=== PATIENT | female | born 1940 | race Caucasian/White ===

== ENCOUNTER 2017-04-04 08:58 | Day surgery (SDC) | payer OTHER, BC ==
[2017-03-27 16:08] VITALS: BMI 30.2
[2017-04-04] MEDS: PHENYLEPHRINE 2.5% OPHTH SOLN 15 ML BOTTLE ONE ×5 (09:25→09:45)
[2017-04-04] MEDS: CYCLOPENTOLATE HCL 1% OPHTH SOLN 2 ML BOTTLE ONE ×5 (09:25→09:45)
[2017-04-04] MEDS: TROPICAMIDE 1% OPHTH SOLN 15 ML BOTTLE ONE ×5 (09:25→09:45)
[2017-04-04] MEDS: FLURBIPROFEN 0.03% OPHTH SOLN 2.5 ML BOTTLE ONE ×5 (09:25→09:45)
[2017-04-04] MEDS: GENTAMICIN SULFATE 0.3% OPHTHALMIC (EYE DROPS) 5ML BOTTLE ONE ×2 (09:40→09:55)
[2017-04-04] MEDS ORDERED: NEO/POLYMYX B SULF/DEXAMETH OPHTHALMIC OINTMENT 3.5 GM ONE (10:50)
[2017-04-04] MEDS ORDERED: BACITRACIN/POLYMYXIN OPH OINT 3.5 GM TUBE ONE (10:51)
[2017-04-04] MEDS ORDERED: BETAXOLOL HCL 0.25% OPHTHALMIC 10 ML DROPSBTL ONE (10:52)
[2017-04-04] MEDS ORDERED: ACETYLCHOLINE 1:100 INTRA-OCUL 20 MG/2 ML KIT ONE (10:52)
[2017-04-04] MEDS ORDERED: POVIDONE-IODINE 5% OPHTHALMIC PREP 30 ML SOLUTION ONE (10:52)
[2017-04-04] MEDS ORDERED: TETRACAINE 0.5% OPHTH SOLN 2 ML BOTTLE ONE (10:57)
[2017-04-04] MEDS ORDERED: LIDOCAINE HCL/PF 2% SDV 5ML VIAL ONE (10:57)
[2017-04-04] MEDS ORDERED: BUPIVACAINE HCL/PF 0.5% (5MG/ML) 10 ML VIAL ONE (10:58)
[2017-04-04] MEDS ORDERED: MIDAZOLAM HCL 2 MG/2 ML SINGLE DOSE VIAL ONE (11:05)
[2017-04-04 12:32] VITALS: TEMP 97.6
[2017-04-04 13:28] VITALS: BP 128/62; PULSE 66
--- NOTE | 2017-04-04 14:06 | OP ---
DATE OF OPERATION: 04/04/2017 PROCEDURE: Planned extracapsular cataract extraction phacoemulsification, insertion of posterior chamber lens implant, left eye. SURGEON: Celestine Bunch MD SLOT HOST SURGEON: Celestine Bunch MD COMPLICATIONS: None. PREOPERATIVE DIAGNOSIS: Cataract left eye. POSTOPERATIVE DIAGNOSIS: Cataract left eye. ANESTHESIOLOGIST: Saúl Franks MD ANESTHESIA: Local with standby. DESCRIPTION OF PROCEDURE: After successful peribulbar anesthesia was given to the left eye, the patient was prepped and draped in the usual manner exposing the left eye. The speculum was inserted after the Tegaderm strips were placed and the patient had been prepped and draped in the usual manner to expose the left eye then the microscope was brought in and positioned over the eye. A superior flap was then fashioned for 12 mm and Berna scissors and 0.12 forceps, and hemostasis achieved with electrocautery. The limbal grill was then fashioned for 3 mm with a crescent blade dissecting anterior into clear cornea. A 3-mm blade was used to enter the anterior chamber, and then under Viscoat, a 360-degree anterior capsulotomy was performed and the leaflet removed from the eye. Phacoemulsification technique was then done by bimanual technique followed by irrigation and aspiration of all cortical material leaving the entire posterior capsule and red reflex present. Provisc was then used to fill the posterior chamber to deep into the posterior capsule and then the implant was inspected carefully and then placed into the Provisc-filled cartridge and the cartridge was placed in the injector, and the implant was injected into the eye such that the inferior haptic was in inferior capsule bag and the superior haptic was in the superior capsule bag and rotated in a horizontal position with a Sinskey hook. The Provisc was aspirated out and replaced with Miochol and Miostat and BSS, and the wound was closed with a single interrupted 10-0 nylon suture and tested for leakage, and none was found. The conjunctival flap was reapproximated. Topical Betoptic-S and Maxitrol ophthalmic suspensions were placed as was bacitracin polymyxin B ophthalmic ointment. At this point, the implant was fixated in the capsular bag located in the posterior chamber with a red reflex present and pupil round and reactive. The globe had a normal tension pressure. The Tegaderm strips and the lid speculum were removed from the lids. The lids were closed, and the patch and shield placed on the eye. The patient was then discharged from the operating room to the recovery area in good condition having tolerated the procedure well. CELESTINE BUNCH M.D. [id number]
== END 2017-04-04 13:40 | disposition home or self-care (01) ==
LOC: FASU 08:58
PROVIDERS: ATTEND Ophthalmology
PROC: 08RK3JZ Replacement of Left Lens with Synthetic Substitute, Percutaneous Approach (ICD-10-PCS; principal; 2017-04-04 11:22)
DX: H26.8 Other specified cataract (principal)